=== PATIENT | female | born 1985 | race Caucasian/White ===

== ENCOUNTER 2020-04-11 07:51 | Outpatient (CLI) | payer BC | END 2020-04-11 23:59 | disposition home or self-care (01) | LOC: CVU 07:51 | PROVIDERS: ATTEND Internal Medicine Clinical Cardiac Electrophysiology | DX: R00.2 Palpitations (principal); Z82.49 Family history of ischemic heart disease and other diseases of the circulatory system | CPT/HCPCS: 93306 ==